=== PATIENT | female | born 1960 | race Caucasian/White ===

== ENCOUNTER 2023-08-29 11:08 | Emergency (ER) | payer OTHER ==
[2023-08-29 11:28] VITALS: BP 124/69; PULSE 92; RESP 18; TEMP 97.5; BMI 27.6
[2023-08-29] MEDS: ACETAMINOPHEN 500 MG TABLET (FP) PO ONE (12:19)
[2023-08-29 13:01] LABS: BASO % 0.6 % (0-2.0); EOS % 0.7 % (0-4.5); HEMATOCRIT 35.6 % (32.4-45.2); HEMOGLOBIN 12.4 GM/dL (10.7-15.3); LYMPH % 16.2 % (8-40); MCH 32.7 pg (25.7-33.7); MCHC 34.7 g/dl (32.0-36.0); MEAN CELL VOLUME 94.2 fl (80-96); MEAN PLT VOLUME 9.1 fl (7.5-11.1); MONO % 7.1 % (3.8-10.2); NEUT % 75.4 % (42.8-82.8); PLATELET COUNT 230 10^3/uL (134-434); RBC 3.78 M/mm3 (3.60-5.2); RDW 14.5 % (11.6-15.6); WHITE BLOOD COUNT 7.5 K/mm3 (4.0-10.0)
[2023-08-29 13:25] LABS: POTASSIUM 4.3 mmol/L (3.5-5.1)
[2023-08-29 13:27] LABS: CALCIUM 8.9 mg/dL (8.5-10.1)
[2023-08-29 13:28] LABS: ALBUMIN 3.6 g/dl (3.4-5.0); BLOOD UREA NITROGEN 14.9 mg/dL (7-18)
[2023-08-29 13:31] LABS: CREATININE 0.7 mg/dL (0.55-1.3)
[2023-08-29 13:32] LABS: TOT PROT 7.2 g/dl (6.4-8.2)
[2023-08-29 13:33] LABS: BILIRUBIN,TOTAL 0.4 mg/dL (0.2-1)
[2023-08-29] MEDS ORDERED: LORazepam 0.5 MG TABLET ONE (14:02)
[2023-08-29] MEDS: LORazepam 2 MG TABLET PO ONE (14:06)
== END 2023-08-29 14:19 | disposition home or self-care (01) ==
LOC: JER 11:08
DX: R51.9 Headache, unspecified (principal); R11.0 Nausea; F41.9 Anxiety disorder, unspecified; V43.52XA Car driver injured in collision with other type car in traffic accident, initial encounter; Y92.481 Parking lot as the place of occurrence of the external cause
CPT/HCPCS: 36415; 70450-TC; 72125-TC; 80053; 84484; 85025; 93005; 93010; 99285-25